=== PATIENT | male | born 1940 | race Caucasian/White ===

== ENCOUNTER 2023-09-22 10:51 | Outpatient (CLI) | payer OTHER | END 2023-09-22 10:52 | disposition home or self-care (01) | LOC: CSHCT 10:51 | PROVIDERS: ATTEND Family Medicine | DX: R31.0 Gross hematuria (principal); N40.0 Benign prostatic hyperplasia without lower urinary tract symptoms; M48.56XD Collapsed vertebra, not elsewhere classified, lumbar region, subsequent encounter for fracture with routine healing | CPT/HCPCS: 74176 ==